=== PATIENT | female | born 1945 | race Caucasian/White ===

== ENCOUNTER 2019-04-22 10:24 | Emergency (ER) | payer MEDICARE, SELFPAY ==
[2019-04-22 10:25] VITALS: BP 158/85; PULSE 90; RESP 17; TEMP 36.5; O2SAT 100
[2019-04-22 10:26] VITALS: BP 158/85; PULSE 90; RESP 19; TEMP 36.5; O2SAT 100; BMI 24.5
[2019-04-22] MEDS: Ondansetron 4 MG/2 ML Vial IV (10:53)
[2019-04-22 13:01] VITALS: BP 153/65; PULSE 95; RESP 18; O2SAT 100
--- NOTE | 2019-04-22 13:17 | ED.DCSUM_ITS ---
History of Present Illness Chief Complaint: Dizziness Informant: Patient Onset: Today Context: Sudden Onset Timing: Intermittent - Spinning Quality: Spinning vertigo Location: Change in position Current Severity: - - Nausea only Maximum Severity: Severe - Change in position especially turning head to the right Worsened by: Change in position Relieved by: Remaining still Associated Symptoms: Nausea and vomiting x3 Narrative: Patient is an elderly woman with history of benign positional vertigo who presents with abrupt onset of nausea vomiting and spinning that is exacerbated with change in position. She states her symptoms are worse when she sits up and turns her head to the right. She denies headache. She denies double vision, blurred vision or loss of vision. She denies cardiac or respiratory symptoms. She denies hematemesis, melena hematochezia. Prior similar symptoms: Yes Recent Illness/Hospitalization: No - Past Medical History (1) History of breast cancer Status: Chronic Past Medical History - Allergies and Home Meds Allergies/Adverse Reactions: Allergies betamethasone [From Celestone Soluspan] Allergy (Verified 04/22/19 10:25) Unknown Primary Care Physician: Easton Santoyo MD [Primary Care Provider] - Prior records reviewed: Yes Surgical History: - - Breast surgery Lives: Alone Smoking Status: Former smoker Alcohol: None Drugs: None Review of Systems General: Denies: Chills, Fever, Malaise, Sweats Eyes: Denies: Visual changes - bilaterally, Blurred Vision - bilaterally, Diplopia ENT: Denies: Bilateral ear pain, Rhinorrhea, Sore throat Cardiovascular: Denies: Chest pain, Palpitations Respiratory: Denies: Dyspnea, Cough, Dyspnea on exertion Gastrointestinal: Reports: Nausea, Vomiting. Denies: Abdominal pain, Diarrhea, Constipation, Melena, Hematochezia, -, - Genitourinary: Denies: Dysuria, Hematuria, Frequency Musculoskeletal: Denies: Myalgias, Arthralgias, Neck pain, Back pain, Swelling, Extremity Pain, -, - Neurological: Denies: Headache, Weakness, Parasthesia, Numbness, -, - Hematologic: Denies: Easy bruising, Easy bleeding Physical Exam Vital Signs/Narrative: Vital Signs Temp Pulse Resp BP Pulse Ox 04/22/19 13:01 95 18 153/65 H 100 04/22/19 10:26 97.7 F L 90 19 H 158/85 H 100 04/22/19 10:25 97.7 F L 90 17 158/85 H 100 Inital Vital Signs reviewed: Yes General: Well nourished, Well developed, Acute Distress, - - Appears pale slightly diaphoretic Head: Normocephalic, Atraumatic Eyes: Perrl, EOMI. Negative for: Pale conjunctiva, Scleral icterus, - ENT: Moist mucous membranes, No rhinorrhea, TM's clear Neck: Supple, Nontender, No lymphadenopathy, No JVD Cardiovascular: Regular rate, Regular rhythm, No murmurs, Normal S1, Normal S2 Respiratory: No distress, CTA bilaterally, Chest nontender Abdomen: Soft, Nontender, Nondistended, Normal bowel sounds, No masses Back: Nontender, Normal Inspection. Negative for: CVA tenderness Extremities: Nontender, No edema. Negative for: Calf Tenderness Skin: Diaphoresis, No Trauma, Pallor. Negative for: No rash, Cyanosis, Jaundice Neurological: Alert, Oriented x3, Cranial nerves II-XII grossly intact, Normal Strength, Normal Sensation, Normal DTR, - - Ex-Hallpike maneuver was positive especially to the right. The eye askew test and the hint test were negative. Psychological: Normal affect, Normal Mood Diagnostic/Tx/Re-eval - Medical Decision Making Patient with nonfocal neurologic exam. [place]-Hallpike maneuver was positive. Symptoms are worse with head turn to the right. The eye askew test and the hint test were negative. Parish maneuver was performed with resolution of her symptoms. She was seen ambulating to the restroom. She complains of feeling thirsty and lightheaded with slight nausea. She is no longer spinning. Patient informed she has not anything to eat or drink in 12 to 24 hours. She received 1 L of normal saline and will reassess. Patient was reassessed at 1550. She sitting up smiling drinking tea. She states she would like to go home. Procedures Procedure(s): Parish maneuver was successful. Patient had significant nystagmus which fatigues with head turning to the right. She had no symptoms with head turning to the left. Minimal symptoms when she was placed in an upright position. She now feels nauseous. Will watch patient ambulate. ED Disposition - Plan for ED Patient: Disposition: Home or Assisted Living Diagnosis: Benign paroxysmal positional vertigo Instructions: ED BPV Vertigo Referrals: Easton Santoyo MD [Primary Care Provider] - As Needed
[2019-04-22] MEDS: 0.9% Normal Saline 1,000 ML 1000 ML IV (13:59)
[2019-04-22 16:21] VITALS: BP 140/68; PULSE 80; RESP 17; O2SAT 96
== END 2019-04-22 16:25 | disposition home or self-care (01) ==
PROVIDERS: Emergency Provider Emergency Medicine; Family Provider Family Medicine; PCP Family Medicine
DX: H81.10 Benign paroxysmal vertigo, unspecified ear (principal); Z85.3 Personal history of malignant neoplasm of breast; Z87.891 Personal history of nicotine dependence
CPT/HCPCS: 96361; 96374; 99285; J7030; A4216; J2405

== ENCOUNTER → 2019-11-20 09:15 | Outpatient (CLI) | payer MEDICARE, SELFPAY ==
[2019-11-20 07:59] VITALS: BMI 24.5
--- NOTE | 2019-11-20 09:16 | RAD_ITS ---
STUDY: X-RAY - LEFT SHOULDER REASON FOR EXAM: Female, 74 years old. PAIN TECHNIQUE: 4 view(s) of the shoulder. COMPARISON: None. FINDINGS: There is mild degenerative arthrosis of the glenohumeral articulation. There is degenerative arthrosis of the acromioclavicular joint without inferior osseous spur formation. Normal acromion. Normal humeral head and visualized proximal humerus. The soft tissue structures are unremarkable. Normal visualized pulmonary apex. RAD/Shoulder min 2 Views IMPRESSION: Degenerative arthrosis Electronically Signed: Efra Pittman MD at 16:45 EST , Service support ,
== END ==
PROVIDERS: Family Provider Family Medicine; PCP Family Medicine; Referring Provider Orthopaedic Surgery; Visit Provider Orthopaedic Surgery
DX: M25.512 Pain in left shoulder (principal)
CPT/HCPCS: 73030

== ENCOUNTER 2020-02-17 09:30 | Outpatient (RCR) | payer MEDICARE, SELFPAY ==
[2020-01-03 08:19] VITALS: BMI 23.3
--- NOTE | 2020-01-07 09:06 | HP.PTEVAL ---
Patient's Visit Information MARIELLE HARRY is a 74 year old F referred to Physical Therapy by Moiz Bates DO with a diagnosis of Left Shoulder oa and bicepital tendonitis.. Date of Evaluation: 01/07/20 Physical Therapist: Jayna Kerr DPT - Visit Plan Frequency: 2x /Week Duration: 4 Weeks Plan: Focus on scapular stabilization and postural correction- impingement of the shoulder. - Subjective Findings: Left shoulder pain started months ago- had an injection but that only lasted for about a week and it still bothes her. Worst thing is getting a sports bra on/off and getting a shirt over hea head. Pain is located in the anterior shoulder- does radiate tot he anterior deltoid- no past the elbow. tender to the touch. Describes the anterior shoulder pain that is sharp/shooting. MD thinks there maybe a biceps tendon tear- she needs to do PT prior to MRI. Has severe vertigo on/off for years-so she has to sleep on her left side which is problematic. She is on Meloxicam and they have diminshed her left sharp shooting pains. Is now sleeping through the night. After she works the shoulder its achy for a few hours but then goes away. Worst: 5/10 Best:0/10 Eases: sitting and resting it. Right hand dominate. Works out 7 days a week-30 minutes on the TM and 30 min on the exercise bike- she works with [employer] and she has given her exercises with small weights. PMHx: breast cancer left- lumpectomy-chemo and radiation 10 years Meds: Meloxicam - Objective Posture: Fh, rs- can correct with verbal cues but does not maintain. Gait: no deviation- good arm swing and trunk rotation. Palpatoin: not tender to touch. Observation: no guarding of the left shoulder but does guard with cervical spine. ROM: Cervical: flexion/ext: decreased by 75%, SB and rot: decreased by 50% slow movement pattern and reports nervous that she will have severe vertigo. Shoulder: Flexion: 180 degrees with end range discomfort, Abd: 150 degrees with end range discomfort, IR: equal to right but reports pain, ER: 60 degrees no pain. Elbow/Wrist: WNL. Strength: Shoulder: 4/5 throguhout with pain, Elbow: 5/5 with discomfort, Wrist/Senior Accountant Analyst: WNL. Special Test: Kanchan Robin: positive, Neer: positive, Empty Can: positive, Lift off: negative - Goals Goal 1:: Patient will be I with HEP and progression Goal Time Frame: 4-6 Weeks Goal 2:: Patient will maintain proper posture t/o tx session to demo increased scap s.s Goal Time Frame: 4-6 Weeks Goal 3:: Patient will report 0/10 pain for 1 week Goal Time Frame: 4-6 Weeks - Rehabilitation Potential Physical Therapy Diagnosis: Patient presents with hypomobility- she has decreased painfree ROM, strength and muscular endurance leading to poor posture and increased pain with ADL's. Rehabilitation Potential: Fair - Anticipated Interventions Patient/Client Instruction: Educate patient on: Benefits of Fitness Program Therapeutic Exercise to Include: Strength training, Endurance training, Body mechanics, Postural training, Neuromotor development, Dynamic Lumbar Stabilization, Scapular Strength/Stabilization For the Purpose of:: To improve muscle performance and motor function TENS: Yes Cryotherapy (ice pack, ice massage): Yes Thermo therapy (hot pack): Yes Ultrasound (thermal/non thermal): Yes Thank you for the opportunity to evaluate your patient. For Medicare and Medicare HMO plans, please review the plan of care and approve it. It will need to be FAXED BACK to us at [phone] for Medicare purposes. For Medicare only, by signing this I certify the plan of care. Please let me know if there are questions or concerns regarding this plan of care. Physician Signature: Date:
--- NOTE | 2020-01-31 10:00 | HP.PTREVAL ---
Moiz Bates, DO, It has been my pleasure to treat MARIELLE HARRY over the last 8 visits for Left Shoulder oa and bicepital tendonitis.. Please see the progress note below for an update on the physical therapy plan of care! Subjective: Patient reports that her shoulder is better- She reports less painful- she still can't lift things with her arm straight out in front of her. Raising her arms over her head isn't great- but she is sleeping better and is not waking her up. She isnt screaming when she has to wear an athletic bra. She is performing a HEP and is working on bands- OTB, GTB, and BTB Objective/Function: Posture: good throughout. Gait: no deviation- good arm swing and trunk rotation. Palpation: tender along bicipital groove. ROM: Flexion: WNL, Abd: 140 degrees then pain, IR: behind the back with pain, ER: 60 degrees. Elbow/wrist/hand: wnl. Strength: Scap: fair minus, Plan Plan: Continue towards POc 2x a week for 3 weeks Goals Goal 1:: Patient will be I with HEP and progression Goal Time Frame: 4-6 Weeks Goal 2:: Patient will maintain proper posture t/o tx session to demo increased scap s.s Goal Time Frame: 4-6 Weeks Goal 3:: Patient will report 0/10 pain for 1 week Goal Time Frame: 4-6 Weeks Anticipated Interventions Patient/Client Instruction: Educate patient on: Benefits of Fitness Program Therapeutic Exercise to Include: Strength training, Endurance training, Body mechanics, Postural training, Neuromotor development, Dynamic Lumbar Stabilization, Scapular Strength/Stabilization For the Purpose of:: To improve muscle performance and motor function TENS: Yes Cryotherapy (ice pack, ice massage): Yes Thermo therapy (hot pack): Yes Ultrasound (thermal/non thermal): Yes Please do not hesitate to contact me at [phone] by phone or if you have questions or concerns regarding this new plan of care! Sincerely, Jayna Kerr DPT
--- NOTE | 2020-02-17 11:17 | HP.PTDCSUM ---
It has been my pleasure to treat MARIELLE HARRY referred by Moiz Bates DO, with the diagnosis of Left Shoulder oa and bicepital tendonitis. for a total of 13 visit(s). Discharge Date: Please see the following information for a summary of their discharge status. Subjective: PATIENT REPORTS SHE IS DOING MUCH BETTER. STATES SHE WAS SKEPTICAL ABOUT PHYSICAL THERPAY BUT SHE IS GLAD SHE DID IT. ABLE TO SLEEP ON LEFT SIDE NOW WITHOUT PAIN. left shldr Pain Intensity (Out of 10): 0 % Improvement: 60 Objective/Function: PATIENT WAS SEEN TODAY FOR RE-ASSESSMENT OF PROGRESS TOWARD THE SET PT GOALS AND THE NEED FOR FURTHER PHYSICAL THERAPY VS READINESS FOR DISCHARGE. UPON EXAM TODAY: ALL MEASUREMENTS TAKEN IN SITTING AND STANDING DUE TO PATIENT REQUESTING NOT TO LIE DOWN (VERTIGO). PATIENT ALSO REQUESTED NOT TO HAVE CERVICAL ROM TESTED. LEFT SHOULDER: FLEX AROM 165 DEG, AAROM 170 DEG. ABD AROM 135 DEG, AAROM 158 DEG, ER AROM 60 DEG, AAROM 65 DEG. STRENGTH - LEFT SHLD 4/5. Goal 1:: Patient will be I with HEP and progression Goal Progress: Goal Met Goal 2:: Patient will maintain proper posture t/o tx session to demo increased scap s.s Goal Progress: Goal Met Goal 3:: Patient will report 0/10 pain for 1 week Goal Progress: Goal Met Plan: D/C TO HEP - PATIENT AGREEABLE. If there are questions or concerns regarding this patient's physical therapy, please feel free to call me at [phone]. Thank you for the referral of this patient. Sincerely, Eve Blanco, PT, Cert MDT
== END 2020-02-17 19:00 | disposition home or self-care (01) ==
LOC: PT 09:30
PROVIDERS: PCP Family Medicine; Referring Provider Orthopaedic Surgery; Visit Provider Orthopaedic Surgery
DX: M19.012 Primary osteoarthritis, left shoulder (principal); M75.22 Bicipital tendinitis, left shoulder
CPT/HCPCS: 97110; 97161; 97164; 97530

== ENCOUNTER 2020-08-14 10:00 | Outpatient (RCR) | payer MEDICARE, SELFPAY ==
[2020-07-13 11:16] VITALS: BMI 23.3
--- NOTE | 2020-07-15 15:37 | HP.PTEVAL ---
Patient's Visit Information MARIELLE HARRY is a 75 year old F referred to Physical Therapy by Dr. Moiz Bates DO with a diagnosis of L shoulder bursitis and vertigo. Date of Evaluation: 07/15/20 Physical Therapist: Umer Darling, DPT, OCS, CSCS - Visit Plan Frequency: 1x/Week Duration: 2-4 Weeks Plan: weekly x 2-4 for vertigo checks and progression to strengthen of RC and posture to I ex program. Next sessioon phase 3 and prone ex, monitor positional. - Subjective Vertigo causes her to sleep on L shoulder as she is fearful of sleepign on R. She has off and on vertigo since but can be bouts every 3-4 years. last novemeber started attacks every month. Has not had one since September. Attack feels like she cannot get off the bed as she is disoriented for a while. Parish has helped in the past.That usually takes care of the problem. can do it to herself and has to sleep afterwards for a while. ATtack is spinning adn scary adn doesn't like to induce. nly limted right now in lying flat and on right side. L shoulder is inflamed adn has hurt for a while.Has had PT for it previously earlier in year and it helped. This is the same thing returning. She did some band ex and pendulum and strength but did not continue at home. Comfortable at rest. Pain is anterior shoulder but got a shot on Monday and it feels good now. Pain was anterior and worse with lifting or lying on L side. Pain was 6/10 with perturbations prior to injection. Since [place] has only been up to 3/10. Sleeping well. Activities are interrupted with comfort and has to use her right arm, she is R handed. Basic ADLs are good. she takes exercise classes and is careful with [place] weights. Back scratching is tough. - Pain L shoulder Pain Intensity (Out of 10): 0 Pain Intensity Range: 0, 3 - Objective Walks I and safely with good balance. Trasnfers I supine adn sit. - B hallpike keerthi and - roll test. Roleed on Right side to ease her fear and sat up. L sh tender to palpation supra insert and bursa area. Posture is forward shoulder and head. AROM cervical spine WFL without pain. AROM L shoulder is full elevation but pain end range, ext rotation to 40 vs 65 on R. IR painful at L5. strength IR and ER 4 with some slight pain ext rotation, abduction slightly painful 4- and flexion and empty can not painful 4. Biceps adn triceps and wrist 4/5 without pain. reflexes 2/3 bi and tri. Sensation UE WNL to neville s light touch. - ext rotation lag test adn drop arm test. + HK and neer testing. - Goals Goal 1:: shoulder pain 1/10 at worst and 80% better Goal Time Frame: 2-4 Weeks Goal 2:: I approp HEP and management of L shoulder pain Goal Time Frame: 2-4 Weeks Goal 3:: Patient able to lie on right side and back to minimze stress to L shoulder. Goal Time Frame: 2-4 Weeks - Rehabilitation Potential Physical Therapy Diagnosis: Fear of vertigo and L shoulder bursitis. Rehabilitation Potential: Fair - Anticipated Interventions Patient/Client Instruction: Educate patient on: Condition, Plan of Care For the Purpose of:: To decrease pain, To increase tolerance to activity/condition/position Therapeutic Exercise to Include: Strength training, Postural training, Flexibilty training, Scapular Strength/Stabilization For the Purpose of:: To decrease pain, To increase tolerance to activity/condition/position Thank you for the opportunity to evaluate your patient. For Medicare and Medicare HMO plans, please review the plan of care and approve it. It will need to be FAXED BACK to us at [phone] for Medicare purposes. For Medicare only, by signing this I certify the plan of care. Please let me know if there are questions or concerns regarding this plan of care. Physician Signature: Date:
--- NOTE | 2020-08-14 10:15 | HP.PTDCSUM ---
It has been my pleasure to treat MARIELLE HARRY referred by Dr. Moiz Bates DO, with the diagnosis of L shoulder bursitis and vertigo for a total of 3 visit(s). Discharge Date: 08/14/20 Please see the following information for a summary of their discharge status. Subjective: No problems with vertigo and activity is normal. Shoulder has been good and taking ex class at the park with 3# weight adn doing well. Stilla voids lifting heavy weights with L hand like holding groceries while opening front door. L shoulder Pain Intensity (Out of 10): 0 % Improvement: 100 Objective/Function: Full aROM L shoulder without pain. Pt did not want vertigo tested today but is confident it iis gone. Overall significant improvements in dizzyness abolished and shoulder pain managed. Goal 1:: shoulder pain 1/10 at worst and 80% better Goal Progress: Goal Met Goal 2:: I approp HEP and management of L shoulder pain Goal Progress: Goal Met Goal 3:: Patient able to lie on right side and back to minimze stress to L shoulder. Goal Progress: Goal Met Plan: d/c, pt to contact doctor if either returns. If there are questions or concerns regarding this patient's physical therapy, please feel free to call me at [phone]. Thank you for the referral of this patient. Sincerely, Umer Darling, DPT, OCS, CSCS
== END 2020-08-14 19:00 | disposition home or self-care (01) ==
LOC: PT 10:00
PROVIDERS: PCP Family Medicine; Referring Provider Orthopaedic Surgery; Visit Provider Orthopaedic Surgery
DX: M19.012 Primary osteoarthritis, left shoulder (principal); M75.52 Bursitis of left shoulder; R42 Dizziness and giddiness
CPT/HCPCS: 97110; 97162; 97164

== ENCOUNTER 2021-01-06 10:55 | Outpatient (RCR) | payer MEDICARE, SELFPAY ==
[2020-07-13 11:16] VITALS: BMI 23.3
== END 2021-01-06 23:59 ==
LOC: IMMUN 10:55
PROVIDERS: PCP Family Medicine; Referring Provider Family Medicine; Visit Provider Family Medicine
DX: Z23 Encounter for immunization (principal)
CPT/HCPCS: 0011A; 0012A; 91301

== ENCOUNTER 2021-08-13 07:56 | Emergency (ER) | payer MEDICARE, SELFPAY ==
[2021-08-13 07:57] VITALS: BP 175/73; PULSE 80; RESP 16; TEMP 36.5; O2SAT 98; BMI 24.3
--- NOTE | 2021-08-13 08:12 | RAD_ITS ---
STUDY: X-RAY CHEST REASON FOR EXAM: Female, 76 years old. Chest pain TECHNIQUE: Single AP portable view of the chest. COMPARISON: None. FINDINGS: EKG electrodes are seen. There is hyperinflation of the lungs consistent with chronic obstructive lung disease (COPD). There is no demonstrated pleural abnormality. Normal size heart. Normal mediastinum and carleen. Normal visualized pulmonary arteries. There is atherosclerotic calcification of the aortic arch with tortuosity. There are degenerative changes of the visualized thoracic spine. There is degenerative osteoarthritis of the bilateral shoulders. There is no demonstrated abnormality of the visualized soft tissue structures of the upper abdomen. RAD/Chest 1 View (Portable) IMPRESSION: Hyperinflation. The lungs are clear. Electronically Signed: Willy Perales MD at 8:55 EDT , Service support ,
--- NOTE | 2021-08-13 08:12 | EKG12_ITS ---
Test Reason : DIZZINESS Blood Pressure : / mmHG Vent. Rate : 081 BPM Atrial Rate : 081 BPM P-R Int : 154 ms QRS Dur : 086 ms QT Int : 384 ms P-R-T Axes : 059 045 073 degrees QTc Int : 446 ms Sinus rhythm with Premature supraventricular complexes Otherwise normal ECG Confirmed by PORTILLO NEELY, ASHLEY ([id number]), editor in chief newspaper AZAEL TOLEDO ([id number]) on 08/16/2021 8:07:08 AM Referred By: TAYLOR Confirmed By:ASHLEY NATH MD
[2021-08-13 08:27] LABS: Absolute Lymphocyte Count 1.36 X10^3/uL (0.83-4.51); Absolute Neutrophil Count 2.3 X10^3/uL (2.0-7.7); Basophil# 0.05 X10^3/uL; Basophil% 1.2 % (0-1); Eosinophil# 0.06 X10^3/uL; Eosinophils% 1.4 % (0-5); Hematocrit 44.7 % (37-47); Hemoglobin 14.7 g/dL (12.0-15.0); Lymphocyte # 1.36 X10^3/ul (0.83-4.51); Lymphocyte % 32.8 % (19-41); Mean Corp Hgb Conc 32.9 g/dL (32-36); Mean Corpuscular Hgb 30.1 pg (27.0-32.0); Mean Corpuscular Volume 91.4 fL (81-99); Monocyte# 0.37 X10^3/uL; Monocyte% 8.9 % (0-10); NRBC Flagged by Analyzer 0 % (0-5); Neutrophil % 55.5 % (47-70); Platelet Count 212 K/mm3 (150-450); RBC Distribution Width CV 13.1 % (11.6-14.6); RBC Distribution Width SD 44.1 fl (35.1-43.9); Red Blood Count 4.89 M/mm3 (4.2-5.4); White Blood Count 4.2 K/mm3 (4.4-11.0)
[2021-08-13 08:38] LABS: Anion Gap 7 (5-15); BUN 23 mg/dL (7-18); BUN/Creat Ratio 36.7 RATIO (10-20); Chloride 105 mmol/L (98-107); Creatinine, Serum 0.63 mg/dL (0.55-1.02); EST Glomerular Filtration Rate 99 mL/min (>60); Est Glom Filt Rate - Afr Amer 119 mL/min (>60); Estimated Creatinine Clearance 44.41 ml/min; Glucose 123 mg/dL (74-106); Potassium 3.8 mmol/L (3.5-5.1); Sodium Level 139 mmol/L (136-145); Troponin-I HS 8 pg/mL (3.0-54.0)
--- NOTE | 2021-08-13 08:47 | EDS_ITS ---
HPI History of Present Illness Chief Complaint: Dizziness Narrative Narrative: 76-year-old female presenting with dizziness. She states that she woke up and went to the bathroom and after getting to the bathroom she felt dizziness. She states that it was vertiginous in nature and she slightly hit her head against the wall. She did not fall to the ground. She was able to use the restroom and then she laid back in bed and again felt dizzy. Patient denies any chest pain, palpitations, shortness of breath. She does have associated nausea and vomiting. She denies fever or chills. She denies constipation or diarrhea. She denies urinary complaints. Patient admits to a history of vertigo in the past. She did not take any medications at home because she does not have a prescription for anything. [facility] Medical History History of breast cancer Home Medications calcium carbonate-vitamin D3 [Calcium 600 + Vit D Tablet] 1 ea PO DAILY 04/22/19 [History Last Taken Unknown] aspirin 81 mg tablet,delayed release 81 mg PO DAILY 11/20/19 [History Last Taken Unknown] meclizine 25 mg PO TID #30 tab 08/13/21 [Rx Last Taken Unknown] Allergy/AdvReac Type Severity Reaction Status Date / Time betamethasone Allergy Unknown Verified 11/20/19 09:30 [From Celestone Soluspan] Surgical History History of lumpectomy of left breast Social History Smoking Status: Former smoker ROS ROS ED Constitutional Constitutional ED: Denies chills or fever(s) Eyes Eyes: Reports blurry vision; Denies diplopia ENT ENT ED: Denies rhinorrhea or sore throat Cardiovascular Cardiovascular: Denies chest pain or palpitations Respiratory/Chest Respiratory/Chest: Denies cough, dyspnea or sputum Gastrointestinal Gastrointestinal: Reports nausea and vomiting; Denies abdominal pain, constipation or diarrhea Genitourinary Genitourinary ED: Denies dysuria or hematuria Musculoskeletal Musculoskeletal: Denies arthralgias, back pain, myalgias or neck pain Integumentary Denies Abrasions or rash Neurologic Neurologic: Denies headache(s) or paresthesias EXAM Physical Exam Const Vital Signs: 08/13/21 07:57 08/13/21 07:59 08/13/21 08:05 Temperature 97.7 F L Temperature Source Oral Pulse Rate 80 Respiratory Rate 16 Respiratory Effort Normal Respiratory Pattern Normal Blood Pressure 175/73 H Blood Pressure Mean 107 Pulse Ox 98 Oxygen Delivery Method Room Air Room Air 08/13/21 10:37 Temperature Temperature Source Pulse Rate 69 Respiratory Rate 16 Respiratory Effort Respiratory Pattern Blood Pressure 128/89 H Blood Pressure Mean 102 Pulse Ox 98 Oxygen Delivery Method Positive well nourished General Appearance ED: NAD; Negative for pallor HEENT Reports moist mucous membranes HEENT Narrative: Nystagmus and vertiginous dizziness elicited on modified Hallpike exam Negative for trauma Eyes PERRL and EOMs intact bilaterally Neck no lymphadenopathy and supple Resp normal respiratory effort and clear to auscultation bilaterally Cardio regular rate and regular rhythm Extremity normal to inspection General Extremety ED: Negative for edema or tenderness General Extremity: Negative for edema Neuro oriented x3 and CN's II-XII intact bilaterally Sensorium / Orientation: alert Psych mental status grossly normal Skin General Skin Exam: Negative for jaundice or pallor MDM MDM MDM Narrative Medical decision making narrative: Patient presenting with vertiginous symptoms. She states that it is similar to previous vertigo however she also states there is a component that is different and feels lightheaded. For this reason I did obtain lab work which shows a normal CBC and BMP. Troponin is 8. Urinalysis negative for infection. Chest x-ray on my interpretation shows no acute cardiopulmonary process and the radiologist does agree. EKG on my in terpretation shows a normal sinus rhythm with a ventricular rate of 81 bpm with occasional premature supraventricular complexes. Patient was treated initially with Phenergan and meclizine and on reevaluation she feels improved. She is no longer nauseous or dizzy. She states that she follows up with somebody from [facility] for her vertigo. She will follow up with them. I feel the patient is stable to be discharged home at this time. I will write her prescription for meclizine. Impression: 1. Vertigo Lab Data Labs: Laboratory Results - last 24 hr 08/13/21 08/13/21 08/13/21 08:10 08:10 09:05 WBC 4.2 L RBC 4.89 Hgb 14.7 Hct 44.7 MCV 91.4 MCH 30.1 MCHC 32.9 RDW Std Deviation 44.1 H RDW Coeff of Paresh 13.1 Plt Count 212 MPV 11.0 Immature Gran % (Auto) 0.200 Neut % (Auto) 55.5 Lymph % (Auto) 32.8 Snyder % (Auto) 8.9 Eos % (Auto) 1.4 Baso % (Auto) 1.2 H Absolute Neuts (auto) 2.3 Absolute Lymphs (auto) 1.36 Nucleated RBC % 0 Sodium 139 Potassium 3.8 Chloride 105 Carbon Dioxide 27.0 Anion Gap 7 BUN 23 H Creatinine 0.63 Estim Creat Clear Calc 44.41 Est GFR (MDRD) Af Amer 119 Est GFR (MDRD) Non-Af 99 BUN/Creatinine Ratio 36.7 H Glucose 123 H Calcium 9.0 Troponin I High Sens 8 Urine Color Yellow Urine Clarity Sl. Cloudy Urine pH 6.0 Ur Specific Sloan 1.020 Urine Protein 15 H Urine Glucose (UA) Normal Urine Ketones Negative Urine Occult Blood 10 H Urine Nitrite Negative Urine Bilirubin Negative Urine Urobilinogen Normal Ur Leukocyte Esterase 25 H Urine RBC 0 SEEN Urine WBC 0-5 SEEN Ur Squamous Epith Cells 0-5 SEEN Urine Bacteria RARE Urine Mucus 0 SEEN Radiography Diagnostic Testing: Radiology Impression Chest X-Ray 08/13/21 08:12 IMPRESSION: Hyperinflation. The lungs are clear. Electronically Signed: Willy Perales MD at 8:55 EDT , Service support , Discharge Plan Triage Chief Complaint: Dizziness ED Provider: Daniel Kelly Dx/Rx/DC Orders Instructions: ED Vertigo, Unspecified Prescriptions: New meclizine 25 mg tablet 25 mg PO TID Qty: 30 RF: 0 No Action aspirin 81 mg tablet,delayed release (DR/EC) 81 mg PO DAILY RF: 0 Calcium 600 + D(3) 1 EACH tablet 1 ea PO DAILY RF: 0 Primary Care Provider: Easton Santoyo Referrals: Easton Santoyo MD [Primary Care Provider] - Disposition Disposition: Home, Self Care
[2021-08-13] MEDS: proMETHazine 25 MG/ML Syringe 12.5 MG IM (08:54)
[2021-08-13] MEDS: Meclizine HCl 25 MG Tablet PO (08:54)
[2021-08-13 09:11] LABS: Color, Urine Yellow (Yellow); Glucose, Dipstick Normal (Normal); Ketone-Dipstick Negative (Negative); Leukocyte Esterase-Dipstick 25 /ul (Negative); Nitrite-Dipstick Negative (Negative); Occult Blood-Urine 10 /ul (Negative); Protein-Dipstick 15 mg/dl (Negative); Urine Bilirubin Dipstick Negative (Negative); Urine Clarity Sl. Cloudy (Clear); Urine Urobilinogen Normal (Normal)
[2021-08-13 09:12] LABS: Mucous, Urine 0 SEEN /hpf (<or=2+); Red Blood Cells-Urine 0 SEEN /hpf (0-5)
[2021-08-13 09:30] LABS: Bacteria RARE /hpf (None Seen); Squamous Epithelial Cells - UA 0-5 SEEN /hpf (5-10); White Blood Cells 0-5 SEEN /hpf (0-5)
[2021-08-13 10:37] VITALS: BP 128/89; PULSE 69; RESP 16; O2SAT 98
[2021-08-13 11:44] VITALS: BP 139/84; PULSE 78; RESP 16
== END 2021-08-13 11:45 | disposition home or self-care (01) ==
PROVIDERS: Emergency Provider Student in an Organized Health Care Education/Training Program; PCP Family Medicine
DX: R42 Dizziness and giddiness (principal); Z87.891 Personal history of nicotine dependence; Z85.3 Personal history of malignant neoplasm of breast; Z79.82 Long term (current) use of aspirin
CPT/HCPCS: 71045; 80048; 81001; 84484; 85025; 93005; 96372; 99285; A4216

== ENCOUNTER 2025-07-18 14:30 | Outpatient (RCR) | payer MEDICARE, SELFPAY ==
--- NOTE | 2025-06-03 10:07 | HP.PTEVAL ---
Patient's Visit Information Visit Information Visit Information: MARIELLE HARRY is a 80 year old F referred to Physical Therapy by Dr. Moiz Bates DO with a diagnosis of R RTC tendinitis. Date of Evaluation: 06/02/25 Physical Therapist: Nickolas Garay DPT Visit Plan Frequency: 2x /Week Duration: 6 Weeks Plan: 1) US to R biceps/anterior shoulder 2) DFM to same region 3) shoulder ER/IR strengthening, deltoid strengthening and periscapular strengthening R shoulder AAROM exercises. Subjective Subjective: Pt. is here today for her initial evaluation with diagnosis of R RTC tendinitis. Pt. reports having pain for a few years now. Pt. reports having difficulty sleeping on her R shoulder. Pt. denies any NT in her shoulder. Pt. reports doing gym activities and classes but modifies. Pt. did have 2 injections and reports no much change in her symptoms. Pt. is hopeful to get back to all recreational and gym activities without limitations. Pain R shoulder: Pain Intensity (Out of 10): 1 Pain Intensity Range: 0 and 4 Objective Objective: POSTURE: Pt. has decent posture in stance, normal B shoulder positioning. ROM: R shoulder: AROM: flexion 150deg, abd 145deg, functional IR R gluteal region, functional ER C4 aberrant motion. MMT: L shoulder: ER 10.0#, IR 17.0#, abd 17.5#, ext 27.6# R shoulder ER: 10.7#, IR 15.4#, abd 13.5 (mild increase NW), ext 24.6#. Pt. had some tenderness with ER and IR testing. + horn blowers, + speeds, - empty can, - belly press, + HK, + neers. Balance/Special Test Scores Quick DASH Score: 34.0900 Goals Goal 1:: LTG: Pt. to be I with HEP. Goal Time Frame: 4-6 Weeks Goal 2:: LTG: Pt. to have increased R shoulder ROM to full. Goal Time Frame: 4-6 Weeks Goal 3:: LTG: Pt. to have symmetrical strength throughout BUEs. Goal Time Frame: 4-6 Weeks Goal 4:: LTG: pt. to sleep throughout the night without increase R arm pain. Rehabilitation Potential Physical Therapy Diagnosis: Pt. has signs and symptoms consistent with R RTC tendinitis. Pt. has marked hypomobility, especially into functional IR. She has some weakness with ER and abd (pain as well). Pt would benefit from PT to address the above limitations progressing back to all recreational activities without limitations. Rehabilitation Potential: Good Anticipated Interventions Patient/Client Instruction: Educate patient on: Condition, Plan of Care, Risk Factors and Benefits of Fitness Program For the Purpose of:: To improve decision making, To facilitate caregiver knowledge, To improve self management, To prevent re-injury and To improve ability to perform tasks related to life management Therapeutic Exercise to Include: Strength training, Power training, Coordination, Postural training, Flexibilty training and Scapular Strength/Stabilization For the Purpose of:: To decrease pain, To decrease swelling/inflammation, To increase ROM, To improve nutrient delivery to tissue, To increase oxygenation perfusion, To improve muscle performance and motor function, To improve ability to perform ADL's, To improve health of tissue, To decrease soft tissue restriction and To increase flexibility/ROM Manual Therapy Techniques to Include: Mobilization, Passive ROM and Soft tissue mobilization For the Purpose of:: To decrease pain, To decrease swelling/inflammation, To increase ROM and To improve nutrient delivery to tissue Cryotherapy (ice pack, ice massage): Yes Thermo therapy (hot pack): Yes Ultrasound (thermal/non thermal): Yes For the Purpose of:: To decrease pain, To decrease swelling/inflammation, To increase ROM, To improve nutrient delivery to tissue and To increase oxygenation perfusion Text: Thank you for the opportunity to evaluate your patient. For Medicare and Medicare HMO plans, please review the plan of care and approve it. It will need to be FAXED BACK to us at [phone] for Medicare purposes. For Medicare only, by signing this I certify the plan of care. Please let me know if there are questions or concerns regarding this plan of care. Physician Signature: Date:
== END 2025-07-18 19:00 | disposition home or self-care (01) ==
LOC: PT 14:30
PROVIDERS: PCP Family Medicine; Referring Provider Orthopaedic Surgery; Visit Provider Orthopaedic Surgery
DX: M75.81 Other shoulder lesions, right shoulder (principal)
CPT/HCPCS: 97035; 97110; 97161

== ENCOUNTER 2025-09-10 11:19 | Inpatient (IN) | payer MEDICARE, SELFPAY ==
[2025-09-10] VITALS (15 sets, daily range): BP systolic 133–190; BP diastolic 63–90; PULSE 56–84; RESP 13–21; TEMP 36.4–37.2; O2SAT 64–100; BMI 25.6; BMI 25.7
--- NOTE | 2025-09-10 12:04 | EKG12_ITS ---
Test Reason : REPEAT
--- NOTE | 2025-09-10 12:04 | RAD_ITS ---
PROCEDURE: RAD/Chest 1 View (Portable)
--- NOTE | 2025-09-10 12:05 | ED.VIS.CHEST ---
HPI History of Present Illness Chief Complaint: Chest Pain Informant: patient and EMS Narrative Narrative: Patient is a 80-year-old female with no significant PMHx presenting to the ED with chest pain, back pain, weakness, and jaw pressure. - Onset of symptoms began this morning, approximately 2 hours prior to arrival. - Reports non-sharp chest pressure, back pain, weakness, and lower jaw pressure. - Symptoms have worsened since onset; initially noticed at the library, prompting her to drive home and call a friend for assistance. - Denies pain worsening with respiration. - Denies any history of cardiac issues. - No current medications. - Recent COVID-19 and influenza vaccinations on Monday. - Denies leg pain, but reports cold feet. - History of GERD, but has not experienced symptoms for many years; denies similar symptoms in the past. - EMS administered 4 aspirin prior to arrival. - Had coffee but no food before going to the library. [facility] Medical History History of breast cancer Allergy/AdvReac Type Severity Reaction Status Date / Time adhesive tape (tape) Allergy Rash Verified 09/10/25 11:24 betamethasone (From Allergy Unknown Verified 09/10/25 11:24 Celestone Soluspan) Surgical History History of lumpectomy of left breast Social History household members: none Smoking Status: Former smoker alcohol intake: current alcohol intake frequency: holidays/special occasions only ROS ROS ED Constitutional Constitutional ED: Reports fatigue and malaise; Denies chills or fever(s) Eyes Eyes: Denies change in vision or diplopia ENT ENT ED: Denies rhinorrhea or sore throat Cardiovascular Cardiovascular: Reports as per HPI, chest pain and radiating jaw, neck or arm pain; Denies leg edema, palpitations or syncope Respiratory/Chest Respiratory/Chest: Denies cough or dyspnea Gastrointestinal Gastrointestinal: Denies abdominal pain, diarrhea, nausea or vomiting Genitourinary Genitourinary ED: Denies dysuria or hematuria Musculoskeletal Musculoskeletal: Denies back pain or neck pain Integumentary Denies abscess or rash Neurologic Neurologic: Denies headache(s), paresthesias or weakness Psychiatric Psychiatric: Denies anxiety or suicidal thoughts EXAM Physical Exam Const Vital Signs: 09/10/25 11:19 09/10/25 12:04 09/10/25 12:19 Temperature 97.6 F L Temperature Source Oral Pulse Rate 67 59 L Respiratory Rate 20 H 17 Blood Pressure 173/72 H 190/85 H Blood Pressure Mean 105 120 Pulse Ox 100 64 100 Oxygen Delivery Method Room Air Room Air Room Air 09/10/25 12:43 09/10/25 13:00 09/10/25 14:00 Temperature Temperature Source Pulse Rate 56 L 61 73 Respiratory Rate 21 H 21 H Blood Pressure 188/74 H 167/63 H 176/77 H Blood Pressure Mean 97 110 Pulse Ox 100 98 Oxygen Delivery Method Room Air Room Air 09/10/25 14:55 09/10/25 15:00 Temperature 97.6 F L Temperature Source Pulse Rate 73 84 Respiratory Rate 21 H 19 H Blood Pressure 176/77 H 185/90 H Blood Pressure Mean 110 121 Pulse Ox 98 100 Oxygen Delivery Method Room Air Positive well nourished and well developed General Appearance ED: well developed and NAD HEENT Reports moist mucous membranes normocephalic and atraumatic Eyes PERRL and EOMs intact bilaterally Neck full ROM and supple Resp normal respiratory effort and clear to auscultation bilaterally Cardio regular rate, regular rhythm and no murmurs GI non-tender and non-distended Auscultation: normoactive bowel sounds Palpation: soft Back/Spine no CVA tenderness General Back: other FROM Extremity normal to inspection General Extremety ED: Negative for edema, pulses abnormal or tenderness General Extremity: Negative for edema or pulses abnormal Neuro oriented x3, CN's II-XII intact bilaterally and no sensory deficits noted Sensorium / Orientation: awake and alert Motor Exam: strength 5/5 throughout Skin no rashes or lesions noted and no wounds Heart Score History: Highly Suspicious ECG: Normal Age: >/= 65 years Risk Factors: No Risk Factors Troponin: >1 - <3 Normal Limit Score: 5 MDM MDM MDM Narrative Medical decision making narrative: Assessment: The patient is a 80-year-old female presenting for non-pleuritic chest and posterior chest pressure with associated lower-jaw discomfort and weakness that began approximately two hours prior to arrival. Pre-hospital and initial ED EKGs are normal. Chest X-ray is normal. Initial troponin <6 ng/L and repeat troponin 88 ng/L show interval rise concerning for cardiac ischemia. Given rising troponin with normal EKGs, unstable angina is the most likely diagnosis and warrants inpatient evaluation and management. Plan: - Four chewable aspirin given by EMS en route - Sublingual nitroglycerin administered in ED; patient became nauseated, vomited, and pain improved - Observed ambulatory in department after treatment - Admit to hospital medicine service with cardiology involvement for further ischemic evaluation and management of unstable angina Diagnostics: - EKG performed by EMS and interpreted in ED: normal sinus rhythm; no ST-T abnormalities. Independently interpreted by Giovanni davis. - EKG repeated in ED: normal sinus rhythm; no ischemic changes. Independently interpreted by Giovanni davis. - Chest X-ray, one view: normal. Independently interpreted by Giovanni davis. - Labs: initial troponin <6 ng/L; repeat troponin 88 ng/L Consultations: - Hospitalist medicine ? accepted admission for unstable angina - Cardiology ? agrees with admission and further inpatient evaluation Reevaluations: - After nitroglycerin and emesis, patient reports marked pain relief; jaw and back discomfort resolved; residual mild chest pressure only Lab Data Attestation: I reviewed the patient's lab results. Labs: Laboratory Results - last 24 hr 09/10/25 09/10/25 11:25 14:02 WBC 4.1 L RBC 5.01 Hgb 14.8 Hct 45.0 MCV 89.8 MCH 29.5 MCHC 32.9 RDW Std Deviation 42.7 RDW Coeff of Paresh 13.0 Plt Count 213 MPV 11.6 Immature Gran % (Auto) 0.200 Neut % (Auto) 42.2 L Lymph % (Auto) 44.0 H Payne % (Auto) 11.1 H Eos % (Auto) 1.0 Baso % (Auto) 1.5 H Absolute Neuts (auto) 1.7 L Absolute Lymphs (auto) 1.78 Nucleated RBC % 0 APTT 23.8 L Sodium 139 Potassium 4.0 Chloride 103 Carbon Dioxide 23.7 Anion Gap 12 BUN 18 Creatinine 0.62 L Estim Creat Clear Calc 56.87 Est GFR (MDRD) Non-Af 91 BUN/Creatinine Ratio 28.9 H Glucose 122 H Calcium 9.5 Troponin T High Sens < 6 Troponin T Hi Sens 2 Hr 88 H* Radiography Diagnostic Testing: Clinical Impression(s) from Imaging Studies Chest X-Ray 09/10/25 12:04 IMPRESSION: No acute abnormality Reading Location: [facility] Rhythm Strip Rhythm Strip: Sinus Rhythm Rate: 60 Ectopy: None EKG Initial EKG: Attestation: I personally reviewed and interpreted this EKG as follows: Interpretation: Sinus Rhythm and No Acute Injury Pattern Comments: Nml axis & intervals; nml EKG when chest pain worse and n/v: Attestation: I personally reviewed and interpreted this EKG as follows: Interpretation: Sinus Rhythm and No Acute Injury Pattern Comments: Nml axis & intervals; nml EKG Prior: Unchanged Management Discussion w/another healthcare provider: Hospitalist and Roll Grinder Operator (cardiology Isma - Yes heparin) Critical Care Time Critical Care Time: Yes Critical care time (excluding procedures): 30-74 minutes (34 min), Including time spent:, Discussing w/Patient &/or Family/Machine Sneller, Discussing w/Consultants, Arranging Admission or Transfer and Performing Direct Patient Care at Bedside Discharge Plan Dx/Rx/DC Orders Clinical Impression: Unstable angina Disposition Disposition: Acute Care [facility]
[2025-09-10 12:18] LABS: Hematocrit 45.0 % (37-47); Hemoglobin 14.8 g/dL (12.0-15.0); Immature Granulocytes Count 0.010 X10^3/uL (0.0-0.0); Mean Corp Hgb Conc 32.9 g/dL (32-36); Mean Corpuscular Volume 89.8 fL (81-99); Mean Platelet Vol. 11.6 fl (6.2-12.0); NRBC Flagged by Analyzer 0 % (0-5); Platelet Count 213 K/mm3 (150-450); RBC Distribution Width CV 13.0 % (11.6-14.6); RBC Distribution Width SD 42.7 fl (35.1-43.9); Red Blood Count 5.01 M/mm3 (4.2-5.4); White Blood Count 4.1 K/mm3 (4.4-11.0)
[2025-09-10 12:21] LABS: Partial Thromboplast Time 23.8 Seconds (24.1-36.2)
[2025-09-10] MEDS: Nitroglycerin SL (ED/IMG/CATH) 0.4 MG TABLET SL (12:43)
[2025-09-10 13:18] LABS: Anion Gap 12 (5-15); BUN 18 mg/dL (4-19); BUN/Creat Ratio 28.9 RATIO (10-20); Calcium,Total 9.5 mg/dL (7.6-11.0); Carbon Dioxide 23.7 mmol/L (21.0-32.0); Chloride 103 mmol/L (98-108); Estimated Creatinine Clearance 56.87 ml/min (50-250); Glucose 122 mg/dL (70-99); Potassium 4.0 mmol/L (3.3-5.1); Troponin T High Sensitivity < 6 ng/L (<=14)
[2025-09-10 14:40] LABS: Troponin T High Sens 2 HR 88 ng/L (<=14)
--- NOTE | 2025-09-10 15:04 | PCM.HP.STD ---
HPI - General General Date of Admission: 09/10/25 Date of Service: 09/10/25 Chief Complaint: Chest pain HPI Narrative MARIELLE HARRY, is a 80 F who presented to [facility] ED on 09/10/2025 with chest pain. Patient has minimal past medical history, is on no home medications. She is retired schoolteacher. She is very active at baseline and attends exercise classes 3 times per week. She notes acute onset of symptoms this morning about 2 hours prior to arrival to the ED. She had symptoms of not sharp chest pressure, back pain, weakness and lower jaw pressure. She was given 4 aspirin prior to arrival to the ED with improvement in her pain. In the ED she was hypertensive to the 170s to 180s systolic, was otherwise in normal sinus rhythm and stable on room air at rest. Initial troponin was normal but second troponin 2 hours later was 88. Given concern for NSTEMI, patient was started on heparin drip and hospitalist was contacted for admission. I saw the patient at bedside in the ED. Patient was sitting back comfortably in bed, conversing normally, in no acute distress. Notes that her chest pain is much improved from earlier today. She denies any prior episodes of chest pain like this. Denies any known cardiac history. No other acute concerns currently. Will be admitted for further management. COUNT INCLUDES THE [facility] Medical History History of breast cancer Home Medications ?Medication ?Instructions ?Recorded ?Last Taken ?Type NK 09/10/25 Unknown History Allergy/AdvReac Type Severity Reaction Status Date / Time adhesive tape (tape) Allergy Rash Verified 09/10/25 11:24 betamethasone (From Allergy Unknown Verified 09/10/25 11:24 Celestone Soluspan) Surgical History History of lumpectomy of left breast Social History household members: none Smoking Status: Former smoker alcohol intake: current alcohol intake frequency: holidays/special occasions only ROS Constitutional Constitutional: Denies chills, fatigue, fever(s) or weakness Eyes Eyes: Denies change in vision Cardiovascular Cardiovascular: Reports chest pain; Denies dyspnea on exertion, edema, lightheadedness, orthopnea or palpitations Respiratory/Chest Respiratory/Chest: Denies cough, shortness of breath at rest or wheezing Gastrointestinal Gastrointestinal: Denies abdominal pain Musculoskeletal Musculoskeletal: Denies arthralgias or myalgias Vital Signs Vital Signs Vital Signs: 09/10/25 11:19 09/10/25 12:04 09/10/25 12:19 Temperature 97.6 F L Temperature Source Oral Pulse Rate 67 59 L Respiratory Rate 20 H 17 Blood Pressure 173/72 H 190/85 H Blood Pressure Mean 105 120 Pulse Ox 100 64 100 Oxygen Delivery Method Room Air Room Air Room Air 09/10/25 12:43 09/10/25 13:00 09/10/25 14:00 Temperature Temperature Source Pulse Rate 56 L 61 73 Respiratory Rate 21 H 21 H Blood Pressure 188/74 H 167/63 H 176/77 H Blood Pressure Mean 97 110 Pulse Ox 100 98 Oxygen Delivery Method Room Air Room Air 09/10/25 14:55 09/10/25 15:00 Temperature 97.6 F L Temperature Source Pulse Rate 73 84 Respiratory Rate 21 H 19 H Blood Pressure 176/77 H 185/90 H Blood Pressure Mean 110 121 Pulse Ox 98 100 Oxygen Delivery Method Room Air Weight Weight: 69.9 kg Body Mass Index (BMI) 25.6 Physical Exam Const alert, oriented x3, no apparent distress, average body habitus, healthy appearing and well nourished Constitutional Narrative: Pleasant elderly female, appears younger than stated age, sitting back comfortably in bed, conversing normally, in no acute distress. General Appearance: cooperative, comfortable, well kempt and well developed HEENT normocephalic, head/scalp atraumatic, hearing grossly normal bilaterally, nasal mucous membranes and turbinates normal and moist oral mucous membranes Eyes PERRL, EOMs intact bilaterally and conjunctivae normal Neck full ROM Chest inspection of chest normal Resp normal respiratory effort, normal air movement, no use of accessory muscles and clear to auscultation bilaterally Cardio regular rate, regular rhythm, no murmurs and peripheral pulses 2+ throughout GI normal to inspection, nondistended, normoactive bowel sounds, soft to palpation, non-tender and non-distended Back/Spine normal ROM Extremity normal to inspection, full ROM and no pedal edema Skin no rashes or lesions noted Psych mental status grossly normal Results Lab / Micro Data 09/10/25 16:03 09/10/25 11:25 Labs: Laboratory Results - last 24 hr 09/10/25 11:25: WBC 4.1 L, RBC 5.01, Hgb 14.8, Hct 45.0, MCV 89.8, MCH 29.5, MCHC 32.9, RDW Std Deviation 42.7, RDW Coeff of Paresh 13.0, Plt Count 213, MPV 11.6, Immature Gran % (Auto) 0.200, Neut % (Auto) 42.2 L, Lymph % (Auto) 44.0 H, [place] % (Auto) 11.1 H, Eos % (Auto) 1.0, Baso % (Auto) 1.5 H, Absolute Neuts (auto) 1.7 L, Absolute Lymphs (auto) 1.78, Nucleated RBC % 0, APTT 23.8 L, Sodium 139, Potassium 4.0, Chloride 103, Carbon Dioxide 23.7, Anion Gap 12, BUN 18, Creatinine 0.62 L, Estim Creat Clear Calc 56.87, Est GFR (MDRD) Non-Af 91, BUN/Creatinine Ratio 28.9 H, Glucose 122 H, Calcium 9.5, Troponin T High Sens < 6 09/10/25 14:02: Troponin T Hi Sens 2 Hr 88 H* Rhythm Strip Rhythm Strip: Sinus Rhythm Rate: 60 Ectopy: None Imaging Radiology Impression Chest X-Ray 09/10/25 12:04 IMPRESSION: No acute abnormality Reading Location: [facility] Assessment & Plan Assessment/Plan (1) NSTEMI, initial episode of care: PLAN: Plan Patient is a 80-year-old female who presented to [facility] ED on 09/10/2025 with chest pain. 1. NSTEMI ? Admit under inpatient status to PCU. Cardiology consulted. Presented with chest pain radiating to the jaw. EKG with normal sinus rhythm, no ST changes. Chest x-ray normal. However, troponin trend normal > 88 > 525. Continue heparin drip. N.p.o. at midnight with plan for left heart cath tomorrow. Echocardiogram ordered. Lipid panel, A1c and TSH ordered. 2. History of breast cancer s/p lumpectomy ? History of left-sided lumpectomy with no recurrence. 3. Right shoulder rotator cuff tendinitis ? Follows with orthopedic surgery for this. Completed physical therapy and had a trial of steroid injections with some improvement. Per recent office note, plan is to continue home exercises with occasional anti-inflammatory drugs. No inpatient needs, continue outpatient follow-up. DVT prophylaxis: Not indicated, on heparin drip CODE STATUS: Full code, verified Expect disposition: Home, TBD Total clinical time spent by myself addressing the patient's medical issues, reviewing all the data, and collaborating with patient's care team: 58 minutes. Charges/Coding Visit Charges Inpatient E&M: 63552 Init Hosp L2
--- NOTE | 2025-09-10 15:06 | CM.ED ---
Social Work Reason for visit: Advanced Directives verified that the current HPOA and LW that is on file with [facility] is the most current. Patient acknowledges that is the most recent copy and that her nephew is her primary agent and her niece the secondary. No further needs identified at this time. Dariana Fabian, GETTERING FILAMENT MACHINE OPERATOR, PETROLEUM INSPECTOR SUPERVISOR
[2025-09-10] MEDS: Nitroglycerin Oint 1 INCH PACKET TD (15:20)
--- NOTE | 2025-09-10 15:20 | ECHOD_ITS ---
Reason For Study ECHO/Echo Complete
[2025-09-10] MEDS: Heparin Injection (Vial) 5,000 UNIT/ML VIAL 4000 UNIT IV (15:25)
[2025-09-10] MEDS: HEPARIN/D5w 25,000 UNITS 25,000 UNITS/250 ML IV.SOLN. 8.4 UNITS CONT INF (15:29)
[2025-09-10 16:16] LABS: Hematocrit 41.2 % (37-47); Hemoglobin 13.1 g/dL (12.0-15.0); Immature Granulocytes Count 0.010 X10^3/uL (0.0-0.0); Mean Corp Hgb Conc 31.8 g/dL (32-36); Mean Corpuscular Volume 73.7 fL (81-99); Mean Platelet Vol. 9.8 fl (6.2-12.0); NRBC Flagged by Analyzer 0 % (0-5); POSITIVE MORPHOLOGY YES; Platelet Count 191 K/mm3 (150-450); RBC Distribution Width CV 14.6 % (11.6-14.6); RBC Distribution Width SD 38.4 fl (35.1-43.9); Red Blood Count 5.59 M/mm3 (4.2-5.4); White Blood Count 4.5 K/mm3 (4.4-11.0)
[2025-09-10 16:38] LABS: Prothrombin Time (Protime)PT. 15.9 SECONDS (11.7-14.9)
[2025-09-10 16:39] LABS: Partial Thromboplast Time 41.0 Seconds (24.1-36.2)
[2025-09-10 16:48] LABS: Differential Indicated SCAN CRITERIA MET
[2025-09-10 16:50] LABS: Troponin T High Sens 4 HR 525 ng/L (<=14)
[2025-09-10 16:58] LABS: AST(SGOT) 29 U/L (<=31); Alanine Aminotransfer ALT/SGPT 16 U/L (<=34); Albumin, Serum 4.1 g/dL (3.4-4.8); Alkaline Phosphatase 86 U/L (35-104); Bilirubin, Direct 0.16 mg/dL (0.00-0.30); Globulin 2.8 g/dL (2.2-4.2)
--- NOTE | 2025-09-10 17:32 | EKG12_ITS ---
Test Reason : CP
[2025-09-10 17:38] LABS: Differential Comment SCANNED
[2025-09-10] MEDS: 0.9% Saline Lock 10 ML Syringe IV ×2 (18:08→21:53)
[2025-09-10 21:51] LABS: Partial Thromboplast Time 86.8 Seconds (24.1-36.2)
[2025-09-10] MEDS: MELATONIN 3 MG TABLET PO (21:51)
[2025-09-11] VITALS (14 sets, daily range): BP systolic 121–199; BP diastolic 54–79; PULSE 63–86; RESP 14–17; TEMP 36.4–37; O2SAT 92–98
[2025-09-11 05:44] LABS: Hematocrit 39.3 % (37-47); Hemoglobin 13.3 g/dL (12.0-15.0); Immature Granulocytes Count 0.020 X10^3/uL (0.0-0.0); Mean Corp Hgb Conc 33.8 g/dL (32-36); Mean Corpuscular Volume 88.5 fL (81-99); Mean Platelet Vol. 10.3 fl (6.2-12.0); NRBC Flagged by Analyzer 0 % (0-5); Platelet Count 199 K/mm3 (150-450); RBC Distribution Width CV 13.2 % (11.6-14.6); RBC Distribution Width SD 43.3 fl (35.1-43.9); Red Blood Count 4.44 M/mm3 (4.2-5.4); White Blood Count 6.1 K/mm3 (4.4-11.0)
--- NOTE | 2025-09-11 05:55 | EKG12_ITS ---
Test Reason : CP ADMISSION
[2025-09-11 06:09] LABS: Partial Thromboplast Time 54.4 Seconds (24.1-36.2)
[2025-09-11 06:26] LABS: Anion Gap 10 (5-15); BUN 15 mg/dL (4-19); BUN/Creat Ratio 24.9 RATIO (10-20); Calcium,Total 9.2 mg/dL (7.6-11.0); Carbon Dioxide 24.0 mmol/L (21.0-32.0); Chloride 103 mmol/L (98-108); Cholesterol 242 mg/dL (<=200); Estimated Creatinine Clearance 55.61 ml/min (50-250); Glucose 112 mg/dL (70-99); Low Density Lipoprotein Calc. 151 mg/dL; Potassium 4.0 mmol/L (3.3-5.1); Triglycerides 75 mg/dL; Very Low Density Lipoprotein 15 mg/dL (5-40); cholesterol:hdl ratio screen 3.09
--- NOTE | 2025-09-11 08:03 | PCM.CONS.C ---
Assessment & Plan Assessment/Plan (1) NSTEMI, initial episode of care: PLAN: Patient presents for chest discomfort and is noted to have elevated cardiac enzymes. Recommendation at this time will be to proceed with a left heart catheterization. The risk benefits alternatives of an explained to her she understands and agrees to proceed. Depending on the findings further recommendations will be made. She will be started on aspirin Her blood pressure will be treated. She will also be started on a statin. (2) HTN (hypertension), benign: PLAN: It is not clear whether she has a history of hypertension or not. At this particular time I would recommend that she be started on an REGINA inhibitor and depending on the findings further recommendations will be made. HPI Consult Data Date of Consult: 09/11/25 HPI Narrative HPI Narrative: MARIELLE HARRY, is a 80 F who presents to the emergency room with epigastric discomfort and just feeling fatigued. She says that she has been in excellent state of health for the last few years actually she does not have any major cardiac history to complain of she did get a flu shot a few days ago and then presented with the above to the emergency room. An initial EKG was done which did not demonstrate any significant abnormalities. Cardiac enzymes were obtained and then a follow-up to our cardiac enzyme level which was noted to be markedly elevated and patient was admitted for cardiology to see. This morning she appears to be free of any chest discomfort. In the emergency room she was noted to have an elevated blood pressure but she says she does not have a previous history of hypertension. [ ] [facility] Medical History History of breast cancer Home Medications ?Medication ?Instructions ?Recorded ?Last Taken ?Type NK 09/10/25 Unknown History Allergy/AdvReac Type Severity Reaction Status Date / Time adhesive tape (tape) Allergy Rash Verified 09/10/25 11:24 betamethasone (From Allergy Unknown Verified 09/10/25 11:24 Celestone Soluspan) Surgical History History of lumpectomy of left breast Social History household members: none Smoking Status: Former smoker alcohol intake: current alcohol intake frequency: holidays/special occasions only ROS Constitutional Constitutional: Denies fever(s) or weight loss Eyes Eyes: Reports systems reviewed and no addt'l complaints, except as documented ENT HEENT: Reports systems reviewed and no addt'l complaints, except as documented Cardiovascular Cardiovascular: Reports chest pain at rest; Denies chest pain with activity, dyspnea at rest, dyspnea on exertion, edema, palpitations or paroxysmal nocturnal dyspnea Respiratory/Chest Respiratory/Chest: Denies dyspnea on exertion, productive cough, shortness of breath at rest or shortness of breath with exertion Gastrointestinal Gastrointestinal: Denies change in bowel habits, nausea, vomiting or weight changes Genitourinary Genitourinary: Denies difficulty urinating Musculoskeletal Musculoskeletal: Denies joint stiffness or muscle weakness Integumentary Integumentary: Denies lesions Neurologic Neurologic: Denies dizziness or syncope Psychiatric Psychiatric: Denies anxiety Endocrine Endocrinology: Denies excessive sweating or fatigue Hematologic/Lymphatic Hematologic/Lymphatic: Denies anemia Allergic/Immunologic Allergic/Immunologic: Denies seasonal rhinorrhea Physical Exam Const alert and oriented x3 Orientation / Consciousness: awake HEENT normocephalic Eyes PERRL Neck Carotids: normal carotid upstroke Chest inspection of chest normal Cardio regular rate and regular rhythm Heart Sounds: S1 normal and S2 normal Extremity normal to inspection Psych mental status grossly normal Objective Data Vital Signs: Vital Signs Temp Pulse Resp BP Pulse Ox O2 Del Method 97.5 F L 77 17 121/64 H 97 Room Air 09/11/25 03:56 09/11/25 03:56 09/11/25 03:56 09/11/25 03:56 09/11/25 03:56 09/11/25 07:47 Oxygen Delivery Method Room Air Weight: 154 lb 1.65 oz Body Mass Index (BMI) 25.7 Intake & Output: Intake and Output for Last 24 Hours 09/09/25 09/10/25 09/11/25 23:59 23:59 23:59 Intake Total 114.04 / 114.04 53.9 / 53.9 Balance 114.04 / 114.04 53.9 / 53.9 Lab / Micro Data 09/11/25 05:33 09/11/25 05:33 Labs: Laboratory Results - last 24 hr 09/10/25 11:25: WBC 4.1 L, RBC 5.01, Hgb 14.8, Hct 45.0, MCV 89.8, MCH 29.5, MCHC 32.9, RDW Std Deviation 42.7, RDW Coeff of Paresh 13.0, Plt Count 213, MPV 11.6, Immature Gran % (Auto) 0.200, Neut % (Auto) 42.2 L, Lymph % (Auto) 44.0 H, [place] % (Auto) 11.1 H, Eos % (Auto) 1.0, Baso % (Auto) 1.5 H, Absolute Neuts (auto) 1.7 L, Absolute Lymphs (auto) 1.78, Nucleated RBC % 0, APTT 23.8 L, Sodium 139, Potassium 4.0, Chloride 103, Carbon Dioxide 23.7, Anion Gap 12, BUN 18, Creatinine 0.62 L, Estim Creat Clear Calc 56.87, Est GFR (MDRD) Non-Af 91, BUN/Creatinine Ratio 28.9 H, Glucose 122 H, Calcium 9.5, Troponin T High Sens < 6 09/10/25 14:02: Hemoglobin A1c 5.7, Total Bilirubin 0.43, Direct Bilirubin 0.16, AST 29, ALT 16, Alkaline Phosphatase 86, Troponin T Hi Sens 2 Hr 88 H*, Total Protein 6.9, Albumin 4.1, Globulin 2.8, TSH 1.660 09/10/25 16:03: WBC 4.5, RBC 5.59 H, Hgb 13.1, Hct 41.2, MCV 73.7 L D, MCH 23.4 L, MCHC 31.8 L, RDW Std Deviation 38.4, RDW Coeff of Paresh 14.6, Plt Count 191, MPV 9.8, Immature Gran % (Auto) 0.200, Neut % (Auto) 39.6 L, Lymph % (Auto) 43.9 H, [place] % (Auto) 12.1 H, Eos % (Auto) 3.5, Baso % (Auto) 0.7, Absolute Neuts (auto) 1.8 L, Absolute Lymphs (auto) 1.99, Nucleated RBC % 0, Differential Comment SCANNED, Platelet Estimate ADEQUATE, PT 15.9 H, INR 1.2, APTT 41.0 H 09/10/25 16:08: Troponin T Hi Sens 4Hr 525 H* 09/10/25 21:27: APTT 86.8 H 09/11/25 05:33: WBC 6.1, RBC 4.44, Hgb 13.3, Hct 39.3, MCV 88.5 D, MCH 30.0, MCHC 33.8 D, RDW Std Deviation 43.3, RDW Coeff of Paresh 13.2, Plt Count 199, MPV 10.3, Immature Gran % (Auto) 0.300, Neut % (Auto) 63.4, Lymph % (Auto) 26.2, [place] % (Auto) 9.2, Eos % (Auto) 0.2, Baso % (Auto) 0.7, Absolute Neuts (auto) 3.9, Absolute Lymphs (auto) 1.59, Nucleated RBC % 0, APTT 54.4 H, Sodium 136, Potassium 4.0, Chloride 103, Carbon Dioxide 24.0, Anion Gap 10, BUN 15, Creatinine 0.60 L, Estim Creat Clear Calc 55.61, Est GFR (MDRD) Non-Af 92, BUN/Creatinine Ratio 24.9 H, Glucose 112 H, Calcium 9.2, Triglycerides 75, Cholesterol 242 H, LDL Cholesterol, Calc 151, VLDL Cholesterol 15, HDL Cholesterol 78, Cholesterol/HDL Ratio 3.09 Rhythm Strip Rhythm Strip: Sinus Rhythm Rate: 60 Ectopy: None Cardiology Labs/Tests 09/10/25 11:25: WBC 4.1 L, RBC 5.01, Hgb 14.8, Hct 45.0, MCV 89.8, MCH 29.5, MCHC 32.9, Plt Count 213, MPV 11.6, Immature Gran % (Auto) 0.200, Neut % (Auto) 42.2 L, Lymph % (Auto) 44.0 H, [place] % (Auto) 11.1 H, Eos % (Auto) 1.0, Baso % (Auto) 1.5 H, Absolute Neuts (auto) 1.7 L, Nucleated RBC % 0, APTT 23.8 L, Sodium 139, Potassium 4.0, Chloride 103, Carbon Dioxide 23.7, Anion Gap 12, BUN 18, Creatinine 0.62 L, Est GFR (MDRD) Non-Af 91, BUN/Creatinine Ratio 28.9 H, Glucose 122 H, Calcium 9.5 09/10/25 14:02: Hemoglobin A1c 5.7, Total Bilirubin 0.43, Direct Bilirubin 0.16 10/29/25 16:03: WBC 4.5, RBC 5.59 H, Hgb 13.1, Hct 41.2, MCV 73.7 L D, MCH 23.4 L, MCHC 31.8 L, Plt Count 191, MPV 9.8, Immature Gran % (Auto) 0.200, Neut % (Auto) 39.6 L, Lymph % (Auto) 43.9 H, [place] % (Auto) 12.1 H, Eos % (Auto) 3.5, Baso % (Auto) 0.7, Absolute Neuts (auto) 1.8 L, Nucleated RBC % 0, PT 15.9 H, INR 1.2, APTT 41.0 H 09/10/25 21:27: APTT 86.8 H 09/11/25 05:33: WBC 6.1, RBC 4.44, Hgb 13.3, Hct 39.3, MCV 88.5 D, MCH 30.0, MCHC 33.8 D, Plt Count 199, MPV 10.3, Immature Gran % (Auto) 0.300, Neut % (Auto) 63.4, Lymph % (Auto) 26.2, [place] % (Auto) 9.2, Eos % (Auto) 0.2, Baso % (Auto) 0.7, Absolute Neuts (auto) 3.9, Nucleated RBC % 0, APTT 54.4 H, Sodium 136, Potassium 4.0, Chloride 103, Carbon Dioxide 24.0, Anion Gap 10, BUN 15, Creatinine 0.60 L, Est GFR (MDRD) Non-Af 92, BUN/Creatinine Ratio 24.9 H, Glucose 112 H, Calcium 9.2, Triglycerides 75, Cholesterol 242 H, VLDL Cholesterol 15, HDL Cholesterol 78, Cholesterol/HDL Ratio 3.09 Rhythm: EKG: ECHO: Stress Test: Cardiac Cath: PCI: CT Surgery: Holter monitor: EPS: PPM: CXR: Chest CT Scan: Radiography Diagnostic Testing: Radiology Impression Chest X-Ray 09/10/25 12:04 IMPRESSION: No acute abnormality Reading Location: [id number] Risk Score for UA/STEMI Assesmment (YES = 1) Risk Stratification Applicable: Yes Age > or = 65: Yes > or = 3 CAD risk factors (HTN, Hypercholesterolemia, Diabetes, family hx, current smoker): No Known CAD (Stenosis > or = 50%): No ASA used in past 7 days: No Severe angina (> or = 2 episodes in 24 hrs): No EKG ST change > or = 0.5mm: No Positive cardiac markers: Yes Score ROBEL Risk Score of mortality/ recurrent ischemic event over the next 14 days: 2 = 8.3% - Low Risk
[2025-09-11 10:14] LABS: D-Dimer Quantitative (DVT/PE) 0.27 FEU/ug/m (0.27-0.49)
[2025-09-11] MEDS: 0.9% Normal Saline (1000mL) 1,000 ML 150 ML IV (10:18)
--- NOTE | 2025-09-11 10:45 | CASEMGMT ---
LILI MURDOCK Face to Face with patient for initial transition planning/care coordination assessment. RN CM introduced self and role at [facility]. Patient lying in bed, alert and oriented. Patient willing to participate in assessment and is able to answer all questions appropriately. Care providers, pharmacy, and demographics verified. Strata: 2 PCP: Yarelis Specialists: MARIANO Hanna POST ACUTE CARE REGISTERED NURSE Preferred Pharmacy: [facility], [facility] Retail at discharge. [facility] Pres[facility] Benefit: yes Living Will/HPOA: yes, Nephew Ron Oswald LNOK: nephew, niece Living Arrangements: Patient lives alone in a single story home with 1 step to enter. Patient states she is independent at home and has a cleaning lady to clean her house. Transportation: self, friends DME/HHC: Patient has shower chair, raised toilet, cane, walker, grab bars, and wheelchair at home. No previous HHC or SNF. Patient wishes to discharge home, denies need for home health at this time. Patient states she has no further needs or concerns at this time. CM to follow for discharge planning needs that may arise. Disposition Plan: Patient to discharge home with family support and follow-up plans in place. Enid BEST, RN, CM
[2025-09-11 11:04] LABS: ACT Activated Clotting Time 255 sec (74-137)
--- NOTE | 2025-09-11 20:14 | PN.HOSP_ITS ---
Reason for Visit
--- NOTE | 2025-09-11 20:14 | PCM.PN.HOSP ---
Reason for Visit Chief Complaint: Chest pain Subjective Subjective Patient was seen and examined today, she had a cardiac catheterization today but there was no need for intervention because the flow study did not indicate the need for intervention. Objective Data Objective Data Vital Signs: Vital Signs Temp Pulse Resp BP Pulse Ox O2 Del Method 98 F 66 14 157/60 H 95 Room Air 09/11/25 14:29 09/11/25 14:29 09/11/25 14:29 09/11/25 14:29 09/11/25 14:29 09/11/25 14:29 Oxygen Delivery Method Room Air Weight: 69.9 kg Body Mass Index (BMI) 25.7 Intake & Output: Intake and Output for Last 24 Hours 09/09/25 09/10/25 09/11/25 23:59 23:59 23:59 Intake Total 114.04 / 114.04 1308.88 / 1308.88 Output Total 500 / 500 Balance 114.04 / 114.04 808.88 / 808.88 Lab / Micro Data 09/12/25 05:10 09/12/25 05:10 Labs: Laboratory Results - last 24 hr 09/10/25 21:27: APTT 86.8 H 09/11/25 05:33: WBC 6.1, RBC 4.44, Hgb 13.3, Hct 39.3, MCV 88.5 D, MCH 30.0, MCHC 33.8 D, RDW Std Deviation 43.3, RDW Coeff of Paresh 13.2, Plt Count 199, MPV 10.3, Immature Gran % (Auto) 0.300, Neut % (Auto) 63.4, Lymph % (Auto) 26.2, [place] % (Auto) 9.2, Eos % (Auto) 0.2, Baso % (Auto) 0.7, Absolute Neuts (auto) 3.9, Absolute Lymphs (auto) 1.59, Nucleated RBC % 0, APTT 54.4 H, D-Dimer Quant (PE/DVT) 0.27, Sodium 136, Potassium 4.0, Chloride 103, Carbon Dioxide 24.0, Anion Gap 10, BUN 15, Creatinine 0.60 L, Estim Creat Clear Calc 55.61, Est GFR (MDRD) Non-Af 92, BUN/Creatinine Ratio 24.9 H, Glucose 112 H, Calcium 9.2, Triglycerides 75, Cholesterol 242 H, LDL Cholesterol, Calc 151, VLDL Cholesterol 15, HDL Cholesterol 78, Cholesterol/HDL Ratio 3.09 09/11/25 08:32: Activated Clotting Time 255 H Radiography Diagnostic Testing: Radiology Impression Echocardiogram 09/10/25 15:20 Interpretation Summary Normal LV size. The left ventricular ejection fraction is 60 %. Left ventricular systolic function is normal. Mild (1+) tricuspid valve insufficiency. The global longitudinal strain = -16.9 % (normal). Ordering Physician: Josh Escamilla Referring Physician: Easton Santoyo Performed By: Yolande Agarwal RDCS Rhythm Strip Rhythm Strip: Sinus Rhythm Rate: 60 Ectopy: None Physical Exam Const alert, oriented x3, no apparent distress, average body habitus and healthy appearing General Appearance: cooperative, well kempt and well developed Orientation / Consciousness: awake, oriented to person, oriented to place and oriented to time HEENT normocephalic, head/scalp atraumatic and moist oral mucous membranes Eyes PERRL, EOMs intact bilaterally and conjunctivae normal Neck supple, no JVD, thyroid normal and no carotid bruits General: trachea midline Resp normal respiratory effort, no retractions, no use of accessory muscles and clear to auscultation bilaterally Auscultation: Negative for rales, rhonchi or wheezes Cardio regular rate, regular rhythm, S1 normal heart sound, S2 normal heart sound, no murmurs, no rub and no gallops GI normal to inspection, nondistended, normoactive bowel sounds, soft to palpation, non-tender and non-distended Extremity no clubbing, cyanosis or edema Skin no rashes or lesions noted General Skin Exam: no breakdown Neuro oriented x3, CN's II-XII intact bilaterally, moves all extremities, no focal motor deficits and no sensory deficits noted Sensorium / Orientation: awake and alert Speech: speech normal Psych affect normal Assessment & Plan Assessment/Plan (1) NSTEMI, initial episode of care: PLAN: Plan 1. [id number] coronary artery disease in LAD-patient's medications were adjusted by cardiology, she will continue to be monitored on telemetry #2 essential hypertension-patient is on several medications including amlodipine and losartan, blood pressure will be monitored #3 hyperlipidemia-patient is on atorvastatin Total clinical time spent by myself addressing the patient's medical issues, reviewing all of her data, and collaborating with patient's care team: 35 minutes Charges/Coding Visit Charges Inpatient E&M: 23073 Subs Hosp L2
[2025-09-11] MEDS: 0.9% Saline Lock 10 ML Syringe IV (21:15)
[2025-09-12 03:26] VITALS: BP 148/59; PULSE 74; RESP 16; TEMP 36.8; O2SAT 96
[2025-09-12 05:33] LABS: Hematocrit 38.1 % (37-47); Hemoglobin 12.7 g/dL (12.0-15.0); Mean Corp Hgb Conc 33.3 g/dL (32-36); Mean Corpuscular Volume 89.4 fL (81-99); Mean Platelet Vol. 10.5 fl (6.2-12.0); Platelet Count 183 K/mm3 (150-450); RBC Distribution Width CV 13.5 % (11.6-14.6); RBC Distribution Width SD 44.3 fl (35.1-43.9); Red Blood Count 4.26 M/mm3 (4.2-5.4); White Blood Count 5.7 K/mm3 (4.4-11.0)
[2025-09-12 06:23] LABS: AST(SGOT) 47 U/L (<=31); Alanine Aminotransfer ALT/SGPT 16 U/L (<=34); Albumin, Serum 3.5 g/dL (3.4-4.8); Alkaline Phosphatase 72 U/L (35-104); Anion Gap 7 (5-15); BUN 13 mg/dL (4-19); BUN/Creat Ratio 23.0 RATIO (10-20); Calcium,Total 8.9 mg/dL (7.6-11.0); Carbon Dioxide 24.4 mmol/L (21.0-32.0); Chloride 108 mmol/L (98-108); Cholesterol 205 mg/dL (<=200); Estimated Creatinine Clearance 55.61 ml/min (50-250); Globulin 2.5 g/dL (2.2-4.2); Glucose 117 mg/dL (70-99); Low Density Lipoprotein Calc. 119 mg/dL; Potassium 4.3 mmol/L (3.3-5.1); Triglycerides 82 mg/dL; Very Low Density Lipoprotein 16 mg/dL (5-40); cholesterol:hdl ratio screen 2.87
[2025-09-12 09:00] VITALS: BP 143/69; PULSE 79; RESP 16; TEMP 36.7; O2SAT 97
[2025-09-12 10:48] VITALS: O2SAT 95
[2025-09-12] MEDS: Aspirin E.C. 81 MG Tablet PO (10:56)
--- NOTE | 2025-09-12 13:28 | DCINST_ITS ---
Discharge Instructions
--- NOTE | 2025-09-12 13:28 | PCM.DC ---
Discharge Instructions DC O2, CPAP, BIPAP needs Home O2 Discharge instructions: No Dressing / Incision Discharge Activity: Return to Normal Activity Weight Bearing Status: Full weight bearing Follow Up Care Test Results: Test results from this visit will be discussed in further detail at your follow-up appointment, if applicable. Discharge Plan Admission Admit Date/Time: 09/10/25 15:17 Primary Reason for Your Visit: non STEMI Attending Provider: Easton Roach Primary Care Provider: Easton Santoyo Consulting Providers: Brodie Ashby; Josh Escamilla Discharge Orders/Prescriptions Prescriptions: New atorvastatin 20 mg Tablet 40 mg PO DAILY Qty: 60 0RF clopidogrel 75 mg Tablet 75 mg PO DAILY Qty: 30 0RF amlodipine 5 mg Tablet 5 mg PO DAILY Qty: 30 0RF aspirin 81 mg Tablet,Delayed Release (Dr/Ec) 81 mg PO BREAKFAST Qty: 0 0RF losartan 25 mg Tablet 25 mg PO DAILY Qty: 30 0RF metoprolol succinate 50 mg tablet extended release 24 hr 50 mg PO DAILY Qty: 30 0RF Referrals / Follow Up: Easton Santoyo MD [Primary Care Provider, Family Practice] - Within 1 Month La Triplett PA [Med Staff - [facility] Practice Prof, Cardiology] - See Referral Note Referral Note: In 3 weeks Disposition Disposition (needs filled in before D/C Order can be placed): Home, Self Care
--- NOTE | 2025-09-12 14:23 | PHA.DC_ITS ---
Pharmacy DC Med Rec Counseling
--- NOTE | 2025-09-12 14:23 | PHA.DC.MC.R ---
Pharmacy [facility] Counseling Pharmacy Service has performed discharge medication reconciliation and counseling for this patient. The patient's discharge medication list was reviewed for discrepancies and discrepancies were resolved. The patient was counseled on the following discharge medications and changes in medications for homegoing were reviewed. The Reason for Use, instructions for use, and potential side effects were reviewed for all new medications. The patient's questions regarding all of their medications were answered. 1. Amlodipine 5 mg PO daily 2. Aspirin 81 mg PO daily 3. Atorvastatin 20 mg 2 tablets daily 4. Clopidogrel 75 mg PO daily 5. Losartan 25 mg PO daily 6. Metoprolol succinate 50 mg daily The patient was able to verbally demonstrate an understanding of their discharge medications. Medications at Discharge Home Medications amlodipine 5 mg tablet 5 mg PO DAILY #30 tabs 09/12/25 aspirin 81 mg tablet,delayed release 81 mg PO BREAKFAST #0 tabs 09/12/25 atorvastatin 20 mg tablet 40 mg (2 x 20 mg) PO DAILY #60 tabs 09/12/25 clopidogrel 75 mg tablet 75 mg PO DAILY #30 tabs 09/12/25 losartan 25 mg tablet 25 mg PO DAILY #30 tabs 09/12/25 metoprolol succinate 50 mg tablet,extended release 24 hr 50 mg PO DAILY #30 tabs 09/12/25
[2025-09-12 15:00] VITALS: BP 136/64; PULSE 77; RESP 16; TEMP 36.7; O2SAT 98
--- NOTE | 2025-09-12 15:07 | CASEMGMT ---
Patient has order for discharge. RN CM in to discuss needs at discharge. Patient denies needs or help at discharge. Patient had no further questions or concerns.
== END 2025-09-12 15:13 | disposition home or self-care (01) | DRG 282 ==
LOC: ED 15:02 → PCU 17:01
PROVIDERS: Internal Medicine Cardiovascular Disease; Admitting Provider Hospitalist; Emergency Provider Emergency Medicine; PCP Family Medicine; Visit Provider Internal Medicine
DX: I21.4 Non-ST elevation (NSTEMI) myocardial infarction (principal); E78.5 Hyperlipidemia, unspecified; I10 Essential (primary) hypertension; I25.110 Atherosclerotic heart disease of native coronary artery with unstable angina pectoris; M75.81 Other shoulder lesions, right shoulder; Z85.3 Personal history of malignant neoplasm of breast; Z87.891 Personal history of nicotine dependence; Z79.899 Other long term (current) drug therapy
CPT/HCPCS: 36415; 71045; 80048; 80053; 80061; 80076; 83036; 84443; 84484; 85025; 85027; 85347; 85379; 85610; 85730; 93005; 93306; 93458; 93571; 94668; 99152; 99153; 99285; C1894; J0153; Q9967; A4216; C1760; C1769; C1887; J2405

== ENCOUNTER → 2025-10-03 | Outpatient (CLI) | payer MEDICARE, SELFPAY ==
[2025-10-03 09:35] LABS: Hematocrit 42.0 % (37-47); Hemoglobin 13.7 g/dL (12.0-15.0); Immature Granulocytes Count 0.020 X10^3/uL (0.0-0.0); Mean Corp Hgb Conc 32.6 g/dL (32-36); Mean Corpuscular Volume 90.5 fL (81-99); Mean Platelet Vol. 10.9 fl (6.2-12.0); NRBC Flagged by Analyzer 0 % (0-5); Platelet Count 205 K/mm3 (150-450); RBC Distribution Width CV 12.8 % (11.6-14.6); RBC Distribution Width SD 42.5 fl (35.1-43.9); Red Blood Count 4.64 M/mm3 (4.2-5.4); White Blood Count 4.3 K/mm3 (4.4-11.0)
[2025-10-03 10:45] LABS: Anion Gap 8 (5-15); BUN 21 mg/dL (4-19); BUN/Creat Ratio 34.7 RATIO (10-20); Calcium,Total 9.4 mg/dL (7.6-11.0); Carbon Dioxide 26.0 mmol/L (21.0-32.0); Chloride 106 mmol/L (98-108); Glucose 101 mg/dL (70-99); Potassium 4.3 mmol/L (3.3-5.1)
== END | disposition home or self-care (01) ==
LOC: LAB 08:55
PROVIDERS: PCP Family Medicine; Referring Provider Student in an Organized Health Care Education/Training Program; Visit Provider Student in an Organized Health Care Education/Training Program
DX: I25.10 Atherosclerotic heart disease of native coronary artery without angina pectoris (principal); I25.2 Old myocardial infarction
CPT/HCPCS: 36415; 80048; 85025